=== PATIENT | female | born 1940 | race Caucasian/White ===

== ENCOUNTER 2022-04-08 09:21 | Inpatient (IN) | payer OTHER, MEDICARE ==
[~2022-04-08] VITALS: Ht 154.9 cm; Wt 45.4 kg
[2022-04-08 09:45] VITALS: BP_SYST 99
[2022-04-08] MEDS ORDERED: NS 500 ML IV ONE ×3 (10:45→13:15)
[2022-04-08 11:28] LABS: LYMPHOCYTES # (AUTO) 0.9 K/uL (1.0-5.5); NEUTROPHILS # (AUTO) 1.6 K/uL (1.8-7.7); RED BLOOD CELL COUNT(AUTO) 4.39 MIL/uL (4.2-6.2); WHITE BLOOD COUNT (AUTO) 2.9 K/uL (4.8-10.8)
[2022-04-08 11:35] LABS: HEMOGLOBIN 13.9 g/dL (12.0-16.0); LYMPHOCYTES % (AUTO) 29.2 % (20.5-51.5); MEAN CORPUSCULAR HEMOGLOBIN 32 pg (27-31); MEAN CORPUSCULAR HGB CONC 33 % (32-36); MEAN CORPUSCULAR VOLUME 96 fL (79.0-98.0); MONOCYTES # (AUTO) 0.5 K/uL (0.0-1.0); MONOCYTES % (AUTO) 16.1 % (1.7-9.3); NEUTROPHILS % (AUTO) 53.7 % (40.0-70.0)
[2022-04-08 11:40] LABS: ANION GAP 8 (5-15); CALCIUM 8.1 mg/dL (8.4-11.0); CHLORIDE 101 mmol/L (98-107); CREATININE 0.99 mg/dL (0.55-1.30); GLUCOSE 97 mg/dL (70-99); POTASSIUM 3.8 mmol/L (3.5-5.1); SODIUM SERUM 138 mmol/L (136-145); UREA NITROGEN, BLOOD 14 mg/dL (8-21)
[2022-04-08 11:49] LABS: ALANINE AMINOTRANSFERASE 23 U/L (12-78); ALBUMIN 3.8 g/dL (3.4-4.8); ASPARTATE AMINOTRANSFERASE 38 U/L (10-37); TOTAL BILIRUBIN 0.2 mg/dL (0.0-1.0)
[2022-04-08 11:54] LABS: ACETAMINOPHEN < 1 ug/mL (1-30)
[2022-04-08 11:55] LABS: ALCOHOL, BLOOD < 3 mg/dL (<10)
[2022-04-08 12:29] LABS: BILIRUBIN,URINE NEGATIVE (NEGATIVE); CLARITY/URINE CLEAR (CLEAR); COLOR,URINE YELLOW (YELLOW); GLUCOSE,URINE NEGATIVE (NEGATIVE); KETONES,URINE NEGATIVE (NEGATIVE); LEUKOCYTE ESTERASE ,URINE 1+ (NEGATIVE); NITRITE, URINE NEGATIVE (NEGATIVE); PROTEIN URINE NEGATIVE (NEGATIVE); UROBILINOGEN,URINE 0.2 (0.2-1.0)
[2022-04-08 12:40] LABS: BLOOD, URINE TRACE (NEGATIVE)
[2022-04-08 12:46] LABS: BARBITURATE, URINE NEGATIVE (NEG <=200); BENZODIAZEPINE, URINE NEGATIVE (NEG <=150); CANNABINOID, URINE NEGATIVE (NEG <=50); COCAINE, URINE NEGATIVE (NEG <=150); METHAMPHETAMINES SCREEN,URINE NEGATIVE (NEG <=500); OPIATE, URINE NEGATIVE (NEG <=100); PHENCYCLIDINE SCREEN,URINE NEGATIVE (NEG <=25); UR TRICYCLIC ANTIDEPRESSANTS NEGATIVE (NEG <=300); URINE AMPHETAMINE NEGATIVE (NEG <=500); URINE METHADONE NEGATIVE (NEG <=200); URINE OXYCODONE SCREEN NEGATIVE (NEG <=100); URINE PROPOXYPHENE SCREEN NEGATIVE (NEG <=300)
[2022-04-08 12:48] LABS: BACTERIA,URINE RARE /HPF (None Seen); RBC,URINE 0-3 /HPF (0-3)
[2022-04-08 13:12] LABS: PLATELET COUNT (AUTO) 94 K/uL (130-430)
[2022-04-08] MEDS ORDERED: cefTRIAXone 1 GM IVPB PREMIX 50 ML IV ONE (13:15)
[2022-04-08] MEDS ORDERED: LEVO75TA7 PO (15:05)
[2022-04-08] MEDS ORDERED: CALC-823 PO (15:05)
[2022-04-08] MEDS ORDERED: VITA800012 (15:05)
[2022-04-08] MEDS ORDERED: LEVE500T9 PO (15:05)
[2022-04-08] MEDS ORDERED: NIFE-55 PO (15:05)
[2022-04-08] MEDS ORDERED: LIP10 PO (15:05)
[2022-04-08] MEDS ORDERED: ASCO500C18 PO (15:05)
[2022-04-08 16:30] VITALS: BP_SYST 115
[2022-04-08] MEDS: NACL 0.9% 1,000 ML IV SCH (18:55)
[2022-04-08 20:00] VITALS: BP_SYST 135
[2022-04-09 00:21] VITALS: BP_SYST 137
[2022-04-09] MEDS: NACL 0.9% 1,000 ML IV SCH ×2 (02:58→17:38)
[2022-04-09 06:38] LABS: BASOPHILS % (AUTO) 0.7 % (0.0-2.0); EOSINOPHILS % (AUTO) 0.2 % (0.0-4.0); HEMATOCRIT 40.8 % (36-48); HEMOGLOBIN 13.6 g/dL (12.0-16.0); LYMPHOCYTES # (AUTO) 1.6 K/uL (1.0-5.5); LYMPHOCYTES % (AUTO) 54.5 % (20.5-51.5); MEAN CORPUSCULAR HEMOGLOBIN 32 pg (27-31); MEAN CORPUSCULAR HGB CONC 33 % (32-36); MEAN CORPUSCULAR VOLUME 95 fL (79.0-98.0); MONOCYTES # (AUTO) 0.3 K/uL (0.0-1.0); MONOCYTES % (AUTO) 8.8 % (1.7-9.3); NEUTROPHILS # (AUTO) 1.1 K/uL (1.8-7.7); NEUTROPHILS % (AUTO) 35.8 % (40.0-70.0); PLATELET COUNT (AUTO) 77 K/uL (130-430); RED BLOOD CELL COUNT(AUTO) 4.31 MIL/uL (4.2-6.2); RED CELL DISTRIBUTION WIDTH 12.7 % (9.0-15.0); WHITE BLOOD COUNT (AUTO) 2.9 K/uL (4.8-10.8)
[2022-04-09 08:00] VITALS: BP_SYST 134
[2022-04-09 08:26] LABS: ALANINE AMINOTRANSFERASE 28 U/L (12-78); ALBUMIN 3.5 g/dL (3.4-4.8); ANION GAP 10 (5-15); ASPARTATE AMINOTRANSFERASE 43 U/L (10-37); CALCIUM 7.8 mg/dL (8.4-11.0); CHLORIDE 104 mmol/L (98-107); CREATININE 0.63 mg/dL (0.55-1.30); GLUCOSE 84 mg/dL (70-99); POTASSIUM 3.4 mmol/L (3.5-5.1); SODIUM SERUM 141 mmol/L (136-145); TOTAL BILIRUBIN 0.1 mg/dL (0.0-1.0); UREA NITROGEN, BLOOD 9 mg/dL (8-21)
[2022-04-09] MEDS ORDERED: cefTRIAXone 1 GM IVPB PREMIX 50 ML IV SCH (09:00)
[2022-04-09 12:00] VITALS: BP_SYST 133
[2022-04-09 18:32] VITALS: BP_SYST 130
[2022-04-09 20:00] VITALS: BP_SYST 132
[2022-04-09] MEDS: levETIRAcetam 500 MG TABLET PO SCH (22:24)
[2022-04-10] VITALS: BP_SYST 128
[2022-04-10] MEDS: NACL 0.9% 1,000 ML IV SCH ×2 (07:30→20:48)
[2022-04-10] MEDS: LEVOTHYROXINE SODIUM 0.075 MG TABLET PO SCH (07:57)
[2022-04-10 08:25] LABS: ALANINE AMINOTRANSFERASE 26 U/L (12-78); ALBUMIN 3.1 g/dL (3.4-4.8); ASPARTATE AMINOTRANSFERASE 40 U/L (10-37); CALCIUM 7.8 mg/dL (8.4-11.0); CREATININE 0.63 mg/dL (0.55-1.30); GLUCOSE 89 mg/dL (70-99); THYROID STIMULATING HORMONE 4.89 uIu/mL (0.36-3.74); TOTAL BILIRUBIN 0.2 mg/dL (0.0-1.0); UREA NITROGEN, BLOOD 13 mg/dL (8-21)
[2022-04-10 08:33] LABS: ANION GAP 10 (5-15); CHLORIDE 103 mmol/L (98-107); SODIUM SERUM 141 mmol/L (136-145)
[2022-04-10 08:38] LABS: POTASSIUM 2.9 mmol/L (3.5-5.1)
[2022-04-10] MEDS ORDERED: ATORVASTATIN 10 MG TABLET PO SCH ×2 (09:00→20:00)
[2022-04-10 09:05] VITALS: BP_SYST 124
[2022-04-10 09:13] LABS: CHOLESTEROL 111 mg/dL (<200); HDL CHOLESTEROL 55 mg/dL (>55); LDL CHOLESTEROL 54 mg/dL (<100); TRIGLYCERIDES 73 mg/dL (30-150)
[2022-04-10] MEDS ORDERED: POTASSIUM CHLORIDE 40 MEQ in NS 250 ML IV ONE ×2 (09:45→11:00)
[2022-04-10] MEDS ORDERED: POTASSIUM CHLORIDE 20 MEQ TAB.PRT.SR PO ONE (10:00)
[2022-04-10] MEDS: levETIRAcetam 500 MG TABLET PO SCH ×2 (10:18→20:46)
[2022-04-10] MEDS ORDERED: CEFTRIAXONE SOD 1 GM/ D5W 50 ML IV SCH ×2 (11:00)
[2022-04-10 17:11] VITALS: BP_SYST 122
[2022-04-10 20:00] VITALS: BP_SYST 115
[2022-04-11] VITALS: BP_SYST 113
[2022-04-11 06:54] LABS: BASOPHILS % (AUTO) 0.5 % (0.0-2.0); EOSINOPHILS % (AUTO) 0.6 % (0.0-4.0); HEMATOCRIT 37.5 % (36-48); HEMOGLOBIN 12.8 g/dL (12.0-16.0); LYMPHOCYTES # (AUTO) 1.2 K/uL (1.0-5.5); LYMPHOCYTES % (AUTO) 51.6 % (20.5-51.5); MEAN CORPUSCULAR HEMOGLOBIN 32 pg (27-31); MEAN CORPUSCULAR HGB CONC 34 % (32-36); MEAN CORPUSCULAR VOLUME 94 fL (79.0-98.0); MONOCYTES # (AUTO) 0.2 K/uL (0.0-1.0); MONOCYTES % (AUTO) 7.4 % (1.7-9.3); NEUTROPHILS % (AUTO) 39.9 % (40.0-70.0); PLATELET COUNT (AUTO) 73 K/uL (130-430); RED BLOOD CELL COUNT(AUTO) 3.98 MIL/uL (4.2-6.2); RED CELL DISTRIBUTION WIDTH 12.7 % (9.0-15.0); WHITE BLOOD COUNT (AUTO) 2.4 K/uL (4.8-10.8)
[2022-04-11] MEDS: NACL 0.9% 1,000 ML IV SCH (06:56)
[2022-04-11] MEDS: LEVOTHYROXINE SODIUM 0.075 MG TABLET PO SCH (06:56)
[2022-04-11 07:25] LABS: NEUTROPHILS # (AUTO) 0.9 K/uL (1.8-7.7)
[2022-04-11 07:29] LABS: ALANINE AMINOTRANSFERASE 29 U/L (12-78); ALBUMIN 2.9 g/dL (3.4-4.8); ANION GAP 8 (5-15); ASPARTATE AMINOTRANSFERASE 41 U/L (10-37); CALCIUM 7.4 mg/dL (8.4-11.0); CHLORIDE 105 mmol/L (98-107); CREATININE 0.56 mg/dL (0.55-1.30); GLUCOSE 88 mg/dL (70-99); POTASSIUM 3.3 mmol/L (3.5-5.1); SODIUM SERUM 139 mmol/L (136-145); TOTAL BILIRUBIN 0.1 mg/dL (0.0-1.0); UREA NITROGEN, BLOOD 9 mg/dL (8-21)
[2022-04-11 08:00] VITALS: BP_SYST 126
[2022-04-11] MEDS: levETIRAcetam 500 MG TABLET PO SCH (08:31)
[2022-04-11] MEDS ORDERED: POTASSIUM CHLORIDE 20 MEQ TAB.PRT.SR PO ONE (09:15)
[2022-04-11] MEDS ORDERED: levoFLOXacin 250 MG TABLET PO SCH (10:00)
[2022-04-11 12:15] VITALS: BP_SYST 120
[2022-04-11 13:48] VITALS: BP_SYST 126
== END 2022-04-11 16:00 | disposition home health service (06) | DRG 871 ==
LOC: SED 09:21 → STU 13:44
PROVIDERS: ADMIT Internal Medicine; ATTEND Internal Medicine
DX: A41.9 Sepsis, unspecified organism (principal); G93.41 Metabolic encephalopathy; U07.1 COVID-19; I69.354 Hemiplegia and hemiparesis following cerebral infarction affecting left non-dominant side; N39.0 Urinary tract infection, site not specified; R55 Syncope and collapse; E03.9 Hypothyroidism, unspecified; E78.5 Hyperlipidemia, unspecified; I10 Essential (primary) hypertension; Z88.2 Allergy status to sulfonamides; Z79.899 Other long term (current) drug therapy; Z63.4 Disappearance and death of family member; Z78.9 Other specified health status; Z79.890 Hormone replacement therapy
CPT/HCPCS: 36415; 70450-TC; 71045; 76376; 80053; 80061; 80307; 81000; 83605; 83735; 84443; 84484; 85025; 87040; 93005; 93306; 96361; 96365; 99285; G0378; G0480; G0481; G0482; J0696; J3480; J7040; J7050; J7060